=== PATIENT | female | born 1965 | race Two or more races ===

== ENCOUNTER → 2018-01-10 07:04 | Outpatient (CLI) | payer OTHER ==
[~2018-01-10 07:04] MED LIST: DAILY VALUE1 EACH; DECADRON P4 MG/ML-1M IH; FLEXERIL 10 MG PO; HYZAAR 50/12.51 TAB; HYZAAR 50/12.51 TAB PO; PTE NO RECUERDA; TORADOL60 MG IM; VISTARIL50 MG PO; VOLTAREM 50 MG PO
== END | disposition home or self-care (01) ==
LOC: LAB 07:04
DX: R73.02 Impaired glucose tolerance (oral) (principal); Z12.11 Encounter for screening for malignant neoplasm of colon; Z00.01 Encounter for general adult medical examination with abnormal findings; I10 Essential (primary) hypertension; E78.2 Mixed hyperlipidemia; D25.9 Leiomyoma of uterus, unspecified; M54.9 Dorsalgia, unspecified; E03.8 Other specified hypothyroidism

== ENCOUNTER 2018-01-30 07:31 | Outpatient (CLI) | payer OTHER | END 2018-01-30 07:41 | disposition home or self-care (01) | LOC: MAMO-SONO 07:31 | DX: Z12.31 Encounter for screening mammogram for malignant neoplasm of breast (principal); M54.89 Other dorsalgia; D25.9 Leiomyoma of uterus, unspecified; N60.01 Solitary cyst of right breast ==

== ENCOUNTER 2018-01-31 07:07 | Outpatient (CLI) | payer OTHER | END 2018-01-31 07:31 | disposition home or self-care (01) | LOC: LAB 07:07 | DX: D50.0 Iron deficiency anemia secondary to blood loss (chronic) (principal) ==

== ENCOUNTER 2018-02-22 10:44 | Outpatient (CLI) | payer OTHER | END 2018-02-22 12:15 | disposition home or self-care (01) | LOC: SONOGRAMA 10:44 | DX: N60.11 Diffuse cystic mastopathy of right breast (principal); N60.12 Diffuse cystic mastopathy of left breast; N63.13 Unspecified lump in the right breast, lower outer quadrant ==

== ENCOUNTER 2018-08-15 11:42 | Outpatient (CLI) | payer OTHER | END 2018-08-15 12:50 | disposition home or self-care (01) | LOC: LAB 11:42 | DX: I11.9 Hypertensive heart disease without heart failure (principal); E03.4 Atrophy of thyroid (acquired); Z11.3 Encounter for screening for infections with a predominantly sexual mode of transmission ==

== ENCOUNTER 2018-10-18 07:40 | Outpatient (CLI) | payer OTHER | END 2018-10-18 10:20 | disposition home or self-care (01) | LOC: LAB 07:40 | DX: E03.8 Other specified hypothyroidism (principal); E78.2 Mixed hyperlipidemia; Z12.11 Encounter for screening for malignant neoplasm of colon; Z13.1 Encounter for screening for diabetes mellitus; E55.9 Vitamin D deficiency, unspecified; N95.1 Menopausal and female climacteric states; D64.89 Other specified anemias ==

== ENCOUNTER 2019-01-01 15:51 | Outpatient (CLI) | payer OTHER | END 2019-01-01 15:57 | disposition home or self-care (01) | LOC: LAB 15:51 | DX: J11.1 Influenza due to unidentified influenza virus with other respiratory manifestations (principal); A49.3 Mycoplasma infection, unspecified site ==

== ENCOUNTER 2020-04-06 15:55 | Outpatient (CLI) | payer OTHER | END 2020-04-06 15:56 | disposition home or self-care (01) | LOC: LAB 15:55 → PPH VACUNA 15:55 → LAB 15:56 | DX: Z23 Encounter for immunization (principal) ==

== ENCOUNTER 2020-06-01 07:17 | Outpatient (CLI) | payer OTHER | END 2020-06-01 15:00 | disposition home or self-care (01) | LOC: LAB 07:17 | DX: D64.89 Other specified anemias (principal) ==

== ENCOUNTER 2020-06-09 07:14 | Outpatient (CLI) | payer OTHER | END 2020-06-09 07:19 | disposition home or self-care (01) | LOC: LAB 07:14 | DX: D50.8 Other iron deficiency anemias (principal); D72.19 Other eosinophilia ==

== ENCOUNTER 2020-07-01 08:42 | Outpatient (CLI) | payer OTHER | END 2020-07-01 18:00 | disposition home or self-care (01) | LOC: PPH VACUNA 08:42 | DX: Z23 Encounter for immunization (principal) ==

== ENCOUNTER 2020-11-03 07:27 | Outpatient (CLI) | payer OTHER | END 2020-11-03 15:00 | disposition home or self-care (01) | LOC: LAB 07:27 | PROVIDERS: ATTEND Specialist | DX: I10 Essential (primary) hypertension (principal); E78.41 Elevated Lipoprotein(a); E28.2 Polycystic ovarian syndrome; A60.04 Herpesviral vulvovaginitis; Z11.3 Encounter for screening for infections with a predominantly sexual mode of transmission; R97.8 Other abnormal tumor markers; N95.8 Other specified menopausal and perimenopausal disorders; E83.51 Hypocalcemia; R10.13 Epigastric pain; K21.9 Gastro-esophageal reflux disease without esophagitis; Z80.0 Family history of malignant neoplasm of digestive organs; D64.89 Other specified anemias ==

== ENCOUNTER 2020-11-08 07:09 | Outpatient (CLI) | payer OTHER | END 2020-11-08 07:12 | disposition home or self-care (01) | LOC: TOM 07:09 | PROVIDERS: ATTEND Internal Medicine Sports Medicine | DX: K57.92 Diverticulitis of intestine, part unspecified, without perforation or abscess without bleeding (principal); R10.9 Unspecified abdominal pain ==

== ENCOUNTER 2020-11-09 13:18 | Outpatient (CLI) | payer OTHER | END 2020-11-09 15:55 | disposition home or self-care (01) | LOC: LAB 13:18 | PROVIDERS: ATTEND Internal Medicine Gastroenterology | DX: R05 Cough (principal); R50.9 Fever, unspecified; Z20.828 Contact with and (suspected) exposure to other viral communicable diseases ==

== ENCOUNTER → 2021-04-12 | Outpatient (CLI) | payer OTHER | END | disposition home or self-care (01) | LOC: PPH VACUNA 08:05 | PROVIDERS: ATTEND Emergency Medicine Pediatric Emergency Medicine | DX: Z23 Encounter for immunization (principal) ==

== ENCOUNTER 2021-04-19 08:00 | Outpatient (CLI) | payer OTHER | END 2021-04-19 08:30 | disposition home or self-care (01) | LOC: PPH VACUNA 08:00 | PROVIDERS: ATTEND Emergency Medicine Pediatric Emergency Medicine | DX: Z23 Encounter for immunization (principal) ==

== ENCOUNTER 2021-11-04 15:39 | Outpatient (CLI) | payer OTHER | END 2021-11-04 15:43 | disposition home or self-care (01) | LOC: LAB 15:39 | PROVIDERS: ATTEND Internal Medicine | DX: U07.1 COVID-19 (principal) ==

== ENCOUNTER 2022-03-15 08:00 | Outpatient (CLI) | payer OTHER | END 2022-03-15 08:30 | disposition home or self-care (01) | LOC: PPH VACUNA 08:00 | PROVIDERS: ATTEND Emergency Medicine Pediatric Emergency Medicine | DX: Z23 Encounter for immunization (principal) ==

== ENCOUNTER 2022-07-26 12:50 | Outpatient (CLI) | payer OTHER | END 2022-07-26 12:51 | disposition home or self-care (01) | LOC: LAB 12:50 | PROVIDERS: ATTEND Student in an Organized Health Care Education/Training Program | DX: N39.0 Urinary tract infection, site not specified (principal) ==

== ENCOUNTER 2023-04-06 11:15 | Outpatient (CLI) | payer OTHER | END 2023-04-06 11:25 | disposition home or self-care (01) | LOC: PPH VACUNA 11:15 | PROVIDERS: ATTEND Emergency Medicine Pediatric Emergency Medicine | DX: Z23 Encounter for immunization (principal) | CPT/HCPCS: 90686; G0008 ==

== ENCOUNTER 2023-10-31 07:26 | Outpatient (CLI) | payer OTHER ==
[2023-10-31 08:03] LABS: HEMATOCRIT 41.9 % (36.0-45.00); HEMOGLOBIN 13.8 g/dL (12.0-15.00); MEAN CELL VOLUME 87.3 fL (80.00-100.00); MEAN CORPUSCULAR HEMOGLOBIN 28.9 pg (27.00-32.0); MEAN CORPUSCULAR HGB CONC 33.1 g/dl (32.0-36.0); PLATELET COUNT 347 K/uL (150-450); RED BLOOD COUNT 4.79 M/uL (4.00-6.00); RED CELL DISTRIBUTION WIDTH 13.4 % (11.5-14.5)
[2023-10-31 08:07] LABS: URINE APPEARANCE Clear; URINE BILIRRUBIN Negative (NEGATIVE); URINE BLOOD Negative; URINE COLOR Yellow; URINE GLUCOSE Negative (NEGATIVE); URINE LEUKOCYTE Negative; URINE NITRATE Negative; URINE PROTEIN Negative (NEGATIVE); URINE UROBILINOGEN 0.2 E.U./dl
[2023-10-31 08:12] LABS: URINE EPITHELIAL CELLS 5.5 uL (0.0-38.8); URINE RBC 2.8 uL (0.0-20.8); URINE WBC 4.4 uL (0.0-23.2)
[2023-10-31 09:20] LABS: BILIRUBIN TOTAL 1.39 mg/dL (0.3-1.2); CALCIUM 9.4 mg/dL (8.5-10.1); CHOL HDL RATIO 3.7 (0-5.0); CREATININE SERUM 0.83 mg/dL (0.55-1.02); FREE TRIODOTIRONINE 2.73 pg/ml (2.18-3.98); GFR 70.86; GLOBULINA 3.1 G/DL (2.4-3.5); POTASSIUM 4.35 mEq/L (3.5-5.1); T4 TOTAL 9.45 UG/DL (4.8-13.9); TOTAL PROTEIN 7.1 gm/dL (6.4-8.2); TSH 4.69 uIU/mL (0.358-3.74)
[2023-11-01 09:08] LABS: CA 125 4.9 U/mL (0.0-38.1); FOLLICLE STIMULATING HORMONE 57.6 mIU/mL (.)
== END 2023-10-31 14:37 | disposition home or self-care (01) ==
LOC: LAB 07:26
PROVIDERS: ATTEND Internal Medicine
DX: D64.9 Anemia, unspecified (principal); Z12.11 Encounter for screening for malignant neoplasm of colon; E03.8 Other specified hypothyroidism; N95.1 Menopausal and female climacteric states; C51.9 Malignant neoplasm of vulva, unspecified; N30.00 Acute cystitis without hematuria; E83.51 Hypocalcemia; A64 Unspecified sexually transmitted disease; N39.0 Urinary tract infection, site not specified; R97.8 Other abnormal tumor markers; R79.89 Other specified abnormal findings of blood chemistry; E55.9 Vitamin D deficiency, unspecified; A60.9 Anogenital herpesviral infection, unspecified

== ENCOUNTER 2024-07-26 09:54 | Outpatient (CLI) | payer OTHER ==
[2024-07-26 12:08] LABS: HEMATOCRIT 40.9 % (36.0-45.00); HEMOGLOBIN 13.6 g/dL (12.0-15.00); MEAN CELL VOLUME 86.9 fL (80.00-100.00); MEAN CORPUSCULAR HEMOGLOBIN 28.8 pg (27.00-32.0); MEAN CORPUSCULAR HGB CONC 33.2 g/dl (32.0-36.0); PLATELET COUNT 347 K/uL (150-450); RED BLOOD COUNT 4.71 M/uL (4.00-6.00); RED CELL DISTRIBUTION WIDTH 13.2 % (11.5-14.5)
[2024-07-26 12:47] LABS: ALBUMIN 3.9 gm/dL (3.4-5.0); BILIRUBIN TOTAL 1.3 mg/dL (0.3-1.2); CALCIUM 9.8 mg/dL (8.5-10.1); CHOL HDL RATIO 3.6 (0-5.0); CREATININE SERUM 0.61 mg/dL (0.55-1.02); GFR 100.74; POTASSIUM 4.76 mEq/L (3.5-5.1); T4 FREE 0.99 NG/ML (0.76-1.46); TOTAL PROTEIN 6.9 gm/dL (6.4-8.2); TSH 2.98 uIU/mL (0.358-3.74)
== END 2024-07-26 09:55 | disposition home or self-care (01) ==
LOC: LAB 09:54
DX: I10 Essential (primary) hypertension (principal); D64.9 Anemia, unspecified

== ENCOUNTER → 2024-11-18 11:52 | Outpatient (CLI) | payer OTHER ==
[2024-11-20 07:11] LABS: HEPATITIS B SURFACE ANTIBODY Reactive (.); HEPATITIS C VIRUS ANTIBODY Non Reactive (Non Reactive)
== END | disposition home or self-care (01) ==
LOC: LAB 11:52
DX: A64 Unspecified sexually transmitted disease (principal); B19.9 Unspecified viral hepatitis without hepatic coma

== ENCOUNTER 2025-04-29 15:14 | Outpatient (CLI) | payer OTHER | END 2025-04-29 15:24 | disposition home or self-care (01) | LOC: PPH VACUNA 15:14 | PROVIDERS: ATTEND Emergency Medicine Pediatric Emergency Medicine | DX: Z23 Encounter for immunization (principal) ==

== ENCOUNTER 2025-06-05 14:15 | Outpatient (CLI) | payer OTHER | END 2025-06-05 14:23 | disposition home or self-care (01) | LOC: RAD 14:15 | DX: M25.561 Pain in right knee (principal) ==